=== PATIENT | female | born 1975 | race Caucasian/White ===

== ENCOUNTER 2022-09-29 08:34 | Inpatient (IN) | payer MEDICAID, SELFPAY ==
[2022-09-29] VITALS (12 sets, daily range): BP systolic 113–166; BP diastolic 64–93; PULSE 79–101; RESP 18–24; TEMP 35.9–36.8; O2SAT 94–99; BMI 37.5; BMI 36.4
--- NOTE | 2022-09-29 08:43 | ED.SOB ---
HPI - SOB/Dyspnea General Time Seen by Provider: 08:43 Date Seen: 09/29/22 Chief Complaint: Shortness of Breath/Dyspnea Stated Complaint: difficulty breathing Time Seen by Provider: 09/29/22 08:43 Source: patient and RN notes reviewed Mode of arrival: ambulatory Limitations: no limitations History of Present Illness HPI Narrative: Jonny is a 47-year-old female coming in with complaint of shortness of breath. She started with a dry cough and some body aches yesterday. She really only maybe has a little sore throat from coughing. Has not noted any temperatures. No GI symptoms with this. She has had no known ill contacts, no recent travel. Starting around 3:00 a.m. this morning she was feeling more short of breath. She feels like she just cannot catch her breath, does seem to be worse with activity. She is on Coumadin for anticoagulation for antiphospholipid syndrome. 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 She has not had her INR checked for about 6 months. Patient is a smoker and denies any prior cardiac or pulmonary diagnoses. She specifically does not believe she carries a diagnosis of emphysema or COPD. She is having no chest pain with this. MD elicited complaint: shortness of breath and cough Related Data Home oxygen amount: none Home Medications Medication Instructions Recorded Confirmed gabapentin 400 mg capsule 400 mg PO 3XD 09/29/22 09/29/22 metoprolol tartrate 25 mg tablet 25 mg PO BID blood pressure 09/29/22 09/29/22 warfarin 5 mg tablet 5 - 7.5 mg DAILY 09/29/22 Allergies Allergy/AdvReac Type Severity Reaction Status Date / Time No Known Allergies Allergy Unknown Unknown Verified 09/29/22 08:41 Review of Systems Status of ROS: Reports: 6 or more systems reviewed and unremarkable except as noted in History and below [facility] Social History Smoking Status: Current every day smoker What tobacco products do you use: cigarettes How often do you have a drink containing alcohol: 2-3 times a week AUDIT-C Alcohol total score: 3 Non-prescribed substance use: denies use service: No Exam Const: Vital Signs, click to edit/add: Vital Signs - 24 hr 09/29/22 08:39 08/22/23 09:33 09/29/22 10:48 Temperature 96.7 F L Pulse Rate [Pulse Oximeter] 93 91 Respiratory Rate 24 20 Blood Pressure [Ri t Upper Arm] 156/92 H 159/93 H Pulse Oximetry 97 96 96 Oxygen Delivery Me thod Room Air Room Air 09/29/22 13:31 09/29/22 13:37 Temperature Pulse Rate [Pulse Oximeter] 95 Respiratory Rate 20 Blood Pressure [Ri t Upper Arm] 113/76 123/64 Pulse Oximetry 94 96 Oxygen Delivery Me thod Room Air Room Air Observe patient coming from the bathroom back to her room and exam room 1. She was tachypneic, did seem short of breath but pulse oximetry placed on her right away after getting back in the room ranged from 96-99%. Her tachypnea did resolve rather quickly after sitting on the bed and resting. Documenting provider has reviewed patient's vital signs: yes Common normals: no apparent distress, oriented x3, no limitations, healthy appearing and alert General appearance: cooperative, comfortable, well kempt, well developed and anxious (Mildly so) HENMT: Common normals: normocephalic, head/scalp atraumatic, hearing grossly normal bilaterally, external ears normal, nasal mucous membranes and turbinates normal, moist oral mucous membranes, oropharynx normal and dentition normal (Has upper denture.) Head and scalp: normocephalic and atraumatic Nose: nasal mucous membranes and turbinates normal External ear: external ears normal Other: Right tympanic membrane obscured by cerumen impaction, anterior canal wall appears normal. Left TM and canal are normal. Eye: Common normals: PERRL, EOMs intact bilaterally, conjunctivae normal and no scleral icterus Conjunctiva: conjunctiva(e) normal Pupil: PERRL Neck & C-Spine: Common normals: full ROM, no lymphadenopathy, supple, no meningeal signs, no JVD and thyroid normal Thyroid: thyroid normal Chest: Common normals: inspection of chest normal and palpation of chest normal Resp: Common normals: normal respiratory effort, no retractions, no use of accessory muscles and clear to auscultation bilaterally Effort & inspection: able to speak in complete sentences Auscultation: clear to auscultation bilaterally Cardio: Common normals: no JVD, regular rate, regular rhythm, S1 normal heart sound, S2 normal heart sound, no gallops, no clicks and no murmurs Rate: regular rate Rhythm: regular rhythm Heart sounds: S1 normal and S2 normal GI: Common normals: Normal to inspection, nondistended, normoactive bowel sounds present, soft to palpation and non-tender Palpation: soft Extremity: Other: No pretibial edema. Has well-healed surgical scar overlying the left anterior lower extremity. Neuro: Common normals: oriented x3 Sensorium/orientation: alert Meningeal signs: no meningeal signs Psych: Appearance: well kempt Course Course Hospital Course: Have reassured patient that she is oxygenating her pulse oximetry. Will look at cardiopulmonary diagnoses, pulmonary infectious etiologies. This could be cardiac in nature, pulmonary infectious etiologies such as COVID or other viral issues, possibly early pneumonia which could be bacterial. She could have some component of COPD given her history of smoking but do not note any hypoxia or wheezing clinically on examination. Will do appropriate complement of blood work, start with a portable chest x-ray. Have reviewed with patient if her INR is subtherapeutic, we may need to consider doing chest CT PE protocol. We will continue to observe her on pulse oximetry while here. She obviously will also be getting EKG and troponin. Reevaluation(s) Time of Reevaluation #1: 11:15 Reevaluation #1: Have reviewed the chest x-ray findings in the lab reports with the patient. It would appear that this may be congestive heart failure. Would recommend hospitalization, getting an echo. Have reviewed with her that we will be doing a follow-up heart enzyme but it is not due until 12:25 p.m.. Will be talking to the hospitalist, reviewed with her that I have ordered 40 mg IV Lasix and reviewed the action of the diuretic. She is still not hypoxic. Did review with her that the hospitalists may want a chest CT to better delineate the lungs, will be talking to them about this. Just wanted to review this with her in case they do decide this. Time of Reevaluation #2: 11:40 Reevaluation #2: CBCs just now coming back, hemoglobin is low at 7.3. Hospitalist is down here seeing patient. This obviously needs further evaluation. Patient has already received Lasix. The shortness of breath could actually be from anemia. However, proBNP and vascularity pattern on chest x-ray suggests fluid. Patient has obviously more need for further evaluation and management. May need transfusion, will defer to the hospitalist. Consultations Consultation #1: Reviewed with Dr. Tapia, she will accept patient, does want to proceed with chest CT to ensure correct diagnosis. Next troponin due at 12:25pm. Will place order for ECHO so that this may be done today. Time: 11:18 Consultation #2: Spoke with Dr. Taveras, hospitalist had requested that abdomen and pelvis be added on to the chest CT. I was unaware that we were needing to wait for the reading by the radiologist to come back. It is in now, have let Dr. Taveras no in he actually has already seen this. He does accept patient. Have reviewed with him as well that the iron indices have not been place, was anticipating that the hospitalist would take over further workup. He states he will follow up on that. Time: 14:43 Vital Signs Vital signs: Initial Vital Signs Temperature 96.7 F L 09/29/22 08:39 Temperature Source Temporal Artery Scan 09/29/22 08:39 Pulse Rate 93 09/29/22 08:39 Respiratory Rate 24 09/29/22 08:39 Blood Pressure 156/92 H 09/29/22 08:39 Blood Pressure Mean 113 H 09/29/22 08:39 Blood Pressure Position Sitting 09/29/22 08:39 Pulse Oximetry 97 09/29/22 08:39 Oxygen Delivery Method Room Air 09/29/22 08:39 Vital Signs Temperature 96.7 F L 09/29/22 08:39 Pulse Rate 93 09/29/22 08:39 Respiratory Rate 24 09/29/22 08:39 Blood Pressure 156/92 H 09/29/22 08:39 Pulse Oximetry 97 09/29/22 08:39 Oxygen Delivery Method Room Air 09/29/22 08:39 Temperature 96.7 F L 09/29/22 08:39 Pulse Rate 95 09/29/22 13:31 Respiratory Rate 20 09/29/22 13:31 Blood Pressure 123/64 09/29/22 13:37 Pulse Oximetry 96 09/29/22 13:37 Oxygen Delivery Method Room Air 09/29/22 13:37 MDM - SOB/Dyspnea Differential Diagnosis Differential diagnosis: Likely acute exacerbation of chronic obstructive airways disease, congestive heart failure, community acquired pneumonia and pulmonary embolism Lab Data Attestation: I reviewed the patient's lab results. Labs: Lab Results 09/29/22 09/29/22 09/29/22 Range/Units 09:19 09:25 09:27 WBC 8.43 (4.50-11.00) K/uL RBC 4.34 (4.00-5.20) m/uL Hgb 7.3 L* (12.0-16.0) gm/dL Hct 28.2 L (33.0-51.0) % MCV 65 L (80-100) fL MCH 17 L (26-34) pg MCHC 26 L (32-36) gm/dL RDW Coeff of Vanessa 20.7 H (11.5-15.5) % Plt Count 338 (140-440) K/uL Neut % (Auto) 79.5 H (42.0-72.0) % Lymph % (Auto) 10.6 L (20-44) % Stewart % (Auto) 7.1 (0.0-11.0) % Eos % (Auto) 2.1 (0.0-7.0) % Baso % (Auto) 0.5 (0.0-3.0) % Neut # (Auto) 6.70 (1.7-7.0) K/uL Lymph # (Auto) 0.90 (0.90-2.90) K/uL Stewart # (Auto) 0.60 (0.00-0.90) K/UL Eos # (Auto) 0.18 (0.00-0.50) K/uL Baso # (Auto) 0.04 (0.00-0.30) K/uL Abs Immat Gran (auto) 0.02 (0.00-0.30) K/uL Imm/Tot Granulo (auto) 0.2 % INR 4.97 H (0.91-1.10) D-Dimer Quant (PE/DVT) < 0.27 (0.00-0.50) ug/ml VBG pH 7.424 (7.32-7.43) VBG pCO2 36 L (40-50) mmHG VBG pO2 45.9 (25-47) mmHG VBG HCO3 24 (21-28) mmol/L Sodium 137 (135-149) mmol/L Potassium 3.4 L (3.6-5.1) mmol/L Chloride 107 (96-114) mmol/L Carbon Dioxide 23 (20-32) mmol/L Anion Gap 7 (7-15) mEq/L BUN 7 (5-24) mg/dL Creatinine 0.5 (0.5-1.5) mg/dL Estimated Creat Clear 108.83 Estimated GFR 116 ml/min Glucose 98 (60-115) mg/dL Total Bilirubin 0.7 (0.1-1.5) mg/dL AST 31 (12-35) U/L ALT 23 (4-35) U/L Alkaline Phosphatase 101 (40-150) U/L C-Reactive Protein 3.0 H (0.5-1.0) mg/dL NT-Pro-B Natriuret Pep 1970 pg/mL Total Protein 7.0 (6.0-8.3) g/dL Albumin 3.7 (3.3-5.0) g/dL SARS-CoV-2 (PCR) Negative SARS-CoV-2 (Negative) Influenza Type A (PCR) Negative PCR FLU A (Negative) Influenza Type B (PCR) Negative PCR FLU B (Negative) RSV (PCR) Negative PCR RSV (Negative) POC Troponin I 0.02 (0.01-0.04) ng/ml Blood Type Antibody Screen Crossmatch (AHG) 09/29/22 09/29/22 Range/Units 12:25 12:47 WBC (4.50-11.00) K/uL RBC (4.00-5.20) m/uL Hgb (12.0-16.0) gm/dL Hct (33.0-51.0) % MCV (80-100) fL MCH (26-34) pg MCHC (32-36) gm/dL RDW Coeff of Vanessa (11.5-15.5) % Plt Count (140-440) K/uL Neut % (Auto) (42.0-72.0) % Lymph % (Auto) (20-44) % Stewart % (Auto) (0.0-11.0) % Eos % (Auto) (0.0-7.0) % Baso % (Auto) (0.0-3.0) % Neut # (Auto) (1.7-7.0) K/uL Lymph # (Auto) (0.90-2.90) K/uL Stewart # (Auto) (0.00-0.90) K/UL Eos # (Auto) (0.00-0.50) K/uL Baso # (Auto) (0.00-0.30) K/uL Abs Immat Gran (auto) (0.00-0.30) K/uL Imm/Tot Granulo (auto) % INR (0.91-1.10) D-Dimer Quant (PE/DVT) (0.00-0.50) ug/ml VBG pH (7.32-7.43) VBG pCO2 (40-50) mmHG VBG pO2 (25-47) mmHG VBG HCO3 (21-28) mmol/L Sodium (135-149) mmol/L Potassium (3.6-5.1) mmol/L Chloride (96-114) mmol/L Carbon Dioxide (20-32) mmol/L Anion Gap (7-15) mEq/L BUN (5-24) mg/dL Creatinine (0.5-1.5) mg/dL Estimated Creat Clear Estimated GFR ml/min Glucose (60-115) mg/dL Total Bilirubin (0.1-1.5) mg/dL AST (12-35) U/L ALT (4-35) U/L Alkaline Phosphatase (40-150) U/L C-Reactive Protein (0.5-1.0) mg/dL NT-Pro-B Natriuret Pep pg/mL Total Protein (6.0-8.3) g/dL Albumin (3.3-5.0) g/dL SARS-CoV-2 (PCR) (Negative) Influenza Type A (PCR) (Negative) Influenza Type B (PCR) (Negative) RSV (PCR) (Negative) POC Troponin I 0.00 L (0.01-0.04) ng/ml Blood Type O Positive Antibody Screen POSITIVE Crossmatch (AHG) See Detail Imaging Data Chest x-ray: Attestation: I have reviewed the pertinent imaging results. Radiologist's impression: Patient: JONNY ESCOBEDO Facility:?[facility] Patient ID:?[id number] Site Patient ID:?[id number]. Site :?[id number] Study:?XRay Chest PORTABLE-09/29/2022 9:47:20 AM Ordering Physician:?Jose C Liang Final Report: INDICATION: Dyspnea. Difficulty in breathing. COMPARISON: April 25, 2012 TECHNIQUE: Single-view study FINDINGS: TUBES AND LINES: None. HEART AND MEDIASTINUM: The heart size is normal. The mediastinal contour appears normal for patient age. LUNGS AND PLEURAL SPACES: Vascular congestion pattern without overt edema. A diffuse inflammatory process accounting for this appearance is also possible but felt less likely.The pleural spaces are unremarkable. OSSEOUS STRUCTURES: Age-appropriate appearance. No acute focal finding. IMPRESSION: Abnormal lung findings favor vascular congestion over a diffuse inflammatory process. No focal consolidation. No overt edema Dictated by Tim Saunders MD @ 09/29/2022 9:54:35 AM (Electronic Signature) CT scan - abdomen: Attestation: I have reviewed the pertinent imaging results. Radiologist's impression: Patient: JONNY ESCOBEDO Facility:?[facility] Patient ID:?[id number] Site Patient ID:?[id number]. Site :?[id number] Study:?CT Chest/Abd/Pelvis W/ 102CC [id number] 12:27:37 PM Ordering Physician:?Jose C Liang Final Report: INDICATION: Cough and shortness of breath. Abnormal chest x-ray. TECHNIQUE: CT chest, abdomen and pelvis acquired with 102 cc Isovue 370 IV contrast. COMPARISON: April 26, 2012. FINDINGS: CHEST Lungs and pleura: Small area of pneumonitis suspected in the lateral basilar segment of the right upper lobe seen best on the coronal series 5, image 82. Subtle ground-glass infiltrates also present in the left upper lobe. Mild biapical subpleural emphysema. No effusions, thickening, or pneumothorax. Heart and vasculature: Heart size is normal. Thoracic aorta and pulmonary artery are normal in caliber. Lymph node/mediastinum: No mediastinal, hilar, or axillary adenopathy. Chest wall: Normal. Bones: No suspicious bone lesions. ABDOMEN AND PELVIS: Liver: Normal in caliber and attenuation. No masses. Gallbladder and bile ducts: Unremarkable. Pancreas: Unremarkable. Spleen: Normal in caliber. Few small low attenuation lesions are of doubtful significance. Adrenal glands: Unremarkable. No masses. Kidneys: Small nonobstructive stones present in the left kidney. No suspicious mass and no hydronephrosis. GI tract: Normal in caliber and appearance. No sign of mass or inflammation. Vasculature: Unremarkable. Mesenteric arteries are patent. Lymph nodes: No lymphadenopathy. Omentum/peritoneum/retroperitoneum/abdominal wall: No masses or infiltration. No free air or significant free fluid. Pelvic organs: Large 8 cm cystic mass in the left ovary contains internal septations. Remainder of the pelvic structures are unremarkable. Bones: No suspicious bone lesions. IMPRESSION: 1. Small subtle areas of pneumonitis suspected in both upper lobes of uncertain chronicity. 2. Remainder of the chest is unremarkable. No signs of CHF. 3. Complex 8 cm left ovarian cystic mass is suspicious for a neoplasm which could be benign or malignant. Gynecology consultation is indicated for management of this finding. 4. Remainder of the exam is unremarkable. Please note that all CT scans at this facility use dose modulation, iterative reconstruction, and/or weight-based dosing when appropriate to reduce radiation dose to as low as reasonably achievable. Dictated by Jerel Salazar MD @ 09/29/2022 2:22:43 PM (Electronic Signature) ECG Data Attestation: I personally reviewed and interpreted this ECG as follows: (Normal sinus rhythm, 80 beats per minute. No ischemia noted. QT corrected 469 milliseconds.) ECG interpretation date: 09/29/22 ECG interpretation time: 09:51 Prior ECG tracings: not available for review Interpretation: Follow-up EKG showing sinus rhythm, 88 beats per minute. No acute change. Discharge Plan Discharge Clinical Impression: Shortness of breath, Anemia Patient Disposition: Admitted As Observation
--- NOTE | 2022-09-29 09:01 | CRLHL7_ITS ---
For Patients: As a result of the Century Cures Act, medical imaging exams and procedure reports are released immediately into your electronic medical record. You may view this report before your referring provider. If you have questions, please contact your health care provider. INDICATION: Dyspnea. Difficulty in breathing. COMPARISON: April 25, 2012 TECHNIQUE: Single-view study FINDINGS: TUBES AND LINES: None. HEART AND MEDIASTINUM: The heart size is normal. The mediastinal contour appears normal for patient age. LUNGS AND PLEURAL SPACES: Vascular congestion pattern without overt edema. A diffuse inflammatory process accounting for this appearance is also possible but felt less likely.The pleural spaces are unremarkable. OSSEOUS STRUCTURES: Age-appropriate appearance. No acute focal finding. IMPRESSION: Abnormal lung findings favor vascular congestion over a diffuse inflammatory process. No focal consolidation. No overt edema Dictated by Tim Saunders MD @ 09/29/2022 9:54:35 AM (Electronically Signed)
[2022-09-29 09:41] LABS: HCO3 VBG 24 mmol/L (21-28); PCO2 VBG 36 mmHG (40-50); PO2 VBG 45.9 mmHG (25-47); pH VBG 7.424 (7.32-7.43)
[2022-09-29 09:43] LABS: Troponin, Point-of-Care* 0.02 ng/ml (0.01-0.04)
[2022-09-29 10:05] LABS: Albumin* 3.7 g/dL (3.3-5.0); Chloride* 107 mmol/L (96-114)
[2022-09-29 10:06] LABS: Potassium* 3.4 mmol/L (3.6-5.1); Sodium* 137 mmol/L (135-149)
[2022-09-29 10:07] LABS: D Dimer Quantitative* < 0.27 ug/ml (0.00-0.50)
[2022-09-29 10:08] LABS: Creatinine* 0.5 mg/dL (0.5-1.5); Est. Creatinine Clearance* 108.83; Estimated Glomerular Filt Rate 116 ml/min
[2022-09-29 10:09] LABS: Alanine Aminotransferase* 23 U/L (4-35); Alkaline Phosphatase* 101 U/L (40-150); Anion Gap 7 mEq/L (7-15); Aspartate Amino Transferase* 31 U/L (12-35); Bilirubin Total* 0.7 mg/dL (0.1-1.5); Blood Urea Nitrogen* 7 mg/dL (5-24); Carbon Dioxide* 23 mmol/L (20-32); Glucose* 98 mg/dL (60-115)
[2022-09-29 10:20] LABS: INR 4.97 (0.91-1.10); NT Pro B Type NatriureticPept* 1970 pg/mL; Prothrombin Time 48.3 Seconds
[2022-09-29 10:27] LABS: PCR FLU A Negative PCR FLU A (Negative); PCR FLU B Negative PCR FLU B (Negative); PCR RSV Negative PCR RSV (Negative)
[2022-09-29 10:30] LABS: SARS PCR* Negative SARS-CoV-2 (Negative)
--- NOTE | 2022-09-29 11:16 | CRLHL7_ITS ---
For Patients: As a result of the Century Cures Act, medical imaging exams and procedure reports are released immediately into your electronic medical record. You may view this report before your referring provider. If you have questions, please contact your health care provider. INDICATION: Cough and shortness of breath. Abnormal chest x-ray. TECHNIQUE: CT chest, abdomen and pelvis acquired with 102 cc Isovue 370 IV contrast. COMPARISON: April 26, 2012. FINDINGS: CHEST Lungs and pleura: Small area of pneumonitis suspected in the lateral basilar segment of the right upper lobe seen best on the coronal series 5, image 82. Subtle ground-glass infiltrates also present in the left upper lobe. Mild biapical subpleural emphysema. No effusions, thickening, or pneumothorax. Heart and vasculature: Heart size is normal. Thoracic aorta and pulmonary artery are normal in caliber. Lymph node/mediastinum: No mediastinal, hilar, or axillary adenopathy. Chest wall: Normal. Bones: No suspicious bone lesions. ABDOMEN AND PELVIS: Liver: Normal in caliber and attenuation. No masses. Gallbladder and bile ducts: Unremarkable. Pancreas: Unremarkable. Spleen: Normal in caliber. Few small low attenuation lesions are of doubtful significance. Adrenal glands: Unremarkable. No masses. Kidneys: Small nonobstructive stones present in the left kidney. No suspicious mass and no hydronephrosis. GI tract: Normal in caliber and appearance. No sign of mass or inflammation. Vasculature: Unremarkable. Mesenteric arteries are patent. Lymph nodes: No lymphadenopathy. Omentum/peritoneum/retroperitoneum/abdominal wall: No masses or infiltration. No free air or significant free fluid. Pelvic organs: Large 8 cm cystic mass in the left ovary contains internal septations. Remainder of the pelvic structures are unremarkable. Bones: No suspicious bone lesions. IMPRESSION: 1. Small subtle areas of pneumonitis suspected in both upper lobes of uncertain chronicity. 2. Remainder of the chest is unremarkable. No signs of CHF. 3. Complex 8 cm left ovarian cystic mass is suspicious for a neoplasm which could be benign or malignant. Gynecology consultation is indicated for management of this finding. 4. Remainder of the exam is unremarkable. Please note that all CT scans at this facility use dose modulation, iterative reconstruction, and/or weight-based dosing when appropriate to reduce radiation dose to as low as reasonably achievable. Dictated by Jerel Salazar MD @ 09/29/2022 2:22:43 PM (Electronically Signed)
[2022-09-29] MEDS: FUROSEMIDE 10 MG/ML inj 40 MG IVP (11:17)
[2022-09-29 11:33] LABS: Basophils Absolute Auto 0.04 K/uL (0.00-0.30); Basophils Percent Auto 0.5 % (0.0-3.0); Eosinophils Absolute Auto 0.18 K/uL (0.00-0.50); Eosinophils Percent Auto 2.1 % (0.0-7.0); Hematocrit 28.2 % (33.0-51.0); Immature Granulocytes Abs Auto 0.02 K/uL (0.00-0.30); Immature Granulocytes Pct Auto 0.2 %; Lymphocytes Percent Auto 10.6 % (20-44); Mean Corpuscular HGB Conc 26 gm/dL (32-36); Mean Corpuscular Hemoglobin 17 pg (26-34); Mean Corpuscular Volume 65 fL (80-100); Monocytes Percent Auto 7.1 % (0.0-11.0); Neutrophils Percent Auto 79.5 % (42.0-72.0); Platelet Count* 338 K/uL (140-440); RDW Coefficient of Variation % 20.7 % (11.5-15.5); Red Blood Count 4.34 m/uL (4.00-5.20); White Blood Count* 8.43 K/uL (4.50-11.00)
[2022-09-29 11:37] LABS: Hemoglobin* 7.3 gm/dL (12.0-16.0); Slide Review Reflex No
--- NOTE | 2022-09-29 11:38 | ED.NURSE ---
lab called with critical hgb 7.3
--- NOTE | 2022-09-29 13:37 | ED.NURSE ---
Pt ambulating to the bathroom. Says she flt a little dizzy upon walking back.
[2022-09-29 14:55] LABS: Iron* 26 ug/dL (37-170)
[2022-09-29 15:04] LABS: Percent Iron Saturation 5 % (20-50); Total Iron Binding Capacity 546 ug/dL (265-497)
[2022-09-29 15:15] LABS: Lab Add On Test New Spec Needed
[2022-09-29 15:33] LABS: Immature Reticulocyte Fraction 27.1 % (3.0-15.9); Reticulocyte Hemoglobin Equivi 13.7 pg (29.0-35.0); Reticulocyte Percent 1.9 % (0.5-2.0); Reticulocytes Absolute 0.09 # (0.03-0.08)
[2022-09-29 16:00] LABS: Ferritin* 6.5 ng/mL (6.24-137.0)
--- NOTE | 2022-09-29 16:00 | CRLHL7_ITS ---
For Patients: As a result of the Century Cures Act, medical imaging exams and procedure reports are released immediately into your electronic medical record. You may view this report before your referring provider. If you have questions, please contact your health care provider. INDICATION: 8 cm left ovarian lesion. TECHNIQUE: Transabdominal and transvaginal pelvic ultrasound. FINDINGS: Uterus is anteverted and measures 10.1 x 6.5 x 6.7 cm. Endometrium is ill-defined and measures approximately 13 mm. There are 2 fibroids in the uterus, larger measuring 3.5 cm. Right ovary appears normal and has normal color and spectral Doppler flow. Left ovary appears to be a almost completely replaced by a 9 cm hypoechoic lesion with subtle internal echogenicity. There is doppler flow in the periphery of the ovary and possibly within the lesion itself. IMPRESSION: 1. Indeterminate 9 cm left ovarian mass. It is unclear if this is cystic or solid from the images. Consider MRI and/or [employer] consult. 2. Uterine fibroids. Dictated by Marino Barbosa MD @ 09/29/2022 9:15:50 PM (Electronically Signed)
[2022-09-29] MEDS: ACETAMINOPHEN 325 MG TABLET PO ×2 (16:38→22:13)
[2022-09-29] MEDS: PANTOPRAZOLE SODIUM 40 MG INJ IVP (16:38)
[2022-09-29] MEDS: NICOTINE 21 MG PATCH 1 PATCH TRANSDERMA (16:43)
--- NOTE | 2022-09-29 17:09 | PM.EN ---
Chart Event Note Date Seen: 09/29/22 Chart Event Note: 39-year-old female admitted with dyspnea. Found to be anemic with microcytic anemia and hemoglobin of 7.3. Is on warfarin and INR is 5. Anti phospholipids syndrome with previous history of clots. No history of GI bleeding. CT scan shows 8 cm left ovarian cystic mass. Pelvic ultrasound results are pending. Gynecology consult is pending for both menorrhagia and management plan for ovarian mass. Patient is admitted the hospital. Blood transfusion is ordered. She has antibodies so this will be delayed. Monitor hemoglobin. Initiate iron therapy orally. Plan EGD tomorrow. I have ordered oral vitamin K to reverse her anticoagulation. Would be good to know that she does not have significant upper GI bleeding before starting back on warfarin.
[2022-09-29] MEDS: POTASSIUM BICARB 25 MEQ EFFERVESCENT TAB 50 MEQ PO (17:42)
--- NOTE | 2022-09-29 18:52 | PC.NURSE ---
End of shift note: patient up to floor at 1455. Patient is pleasant and cooperative, alert and oriented x4. C/O SOB, hgb 7.3 and awaiting 2 units of blood. INR is 4.97 and patient received a one time dose of Vitamin K. VSS. C/O headache and the source of her current pain. PRN tylenol administered and ice pack given. Patient reports relief. Patient smokes 1 pack per day therefore nicotine patch applied to left upper shoulder. Patient on reg diet and tolerating well. Patient will be NPO at midnight for Endoscopy 09/30/2022. IV to right hand and left AC SL and patent. Ambulates independently in room to bathroom and chair. Missing 5 toes on right foot but ambulates without any problems. At patient's request, please do not discuss the 8cm cyst found on right ovary. All other aspects of her stay and health may be discussed with family. RN updated daughterCaterina over the phone on patient's condition at the request of the patient and omitted the part about the 8cm cyst.
--- NOTE | 2022-09-29 19:01 | P.GYNCN_ITS ---
WOODEN TANK ERECTOR - CN: HPI Data of Consult Time Seen by Provider: 18:00 Date Seen: 09/29/22 Patient: Other Consult date: 09/29/22 Requesting Physician: Joaquin Taveras MD Primary Care Provider: Not a Local Provider Consult Narrative Reason for consult: pelvic mass Narrative: Georgie Aiken is a 47 year old who presented to the ED today complaining of shortness of breath. During her workup, she was found to be dignificantly anemic, with a Hgb of 7.3. No obvious signs of bleeding, but is on chronic anticoagulation with warfarin due to antiphospholipid syndrome and history of thrombosis. Her INR was 5 on admission. No obvious signs of bleeding. Notes long standing history of heavy menstrual bleeding. Had CT scan of chest, abdomen and pelvis today which showed an enlarged left ovary containing an 8 cm complex cyst. GYNECOLOGIC HISTORY: LMP began on 08/22/2022. States that menstrual bleeding has always been heavy, but the bleeding seemed to increase when she was started on warfarin, with passage of clots. Over the last 6 months the menstrual interval has become somewhat more irregular. Her current cycle is late. Cis gender female. She is not sexually active and hasn't been sexually active for some time. Overdue for pap smear screening. No history of abnormal pap smears STIs or PID. OBSTETRIC HISTORY: History of 3 term vaginal deliveries, uncomplicated. History of one first trimester spontaneous miscarriage. cc:: CC: Reema Tapia MD Review of Systems Narrative: Denies pelvic pain, unusual vaginal discharge. [facility] PFS Surgical History (Updated 09/29/22 @ 19:19 by Latrice De La Rosa MD) History of bowel resection ?Z90.49 - Acquired absence of other specified parts of digestive tract (ICD- 10) History of tubal ligation ?Z98.51 - Tubal ligation status (ICD-10) History of appendectomy ?Z90.49 - Acquired absence of other specified parts of digestive tract (ICD- 10) Social History (Updated 09/29/22 @ 19:20 by Latrice De La Rosa MD) Narrative: 3 daughters What is your current living situation?: I presently have a place to live Problems where you live: no known problems Problems where you live details: no In the past 12 months, utilities in danger of being shut off: no In the past 12 mos, have been you worried that your food would run out before you had money to buy more?: never true In the past 12 mos, the food you bought just didn't last and you didn't have money to buy more?: never true Highest level of school completed/degree received: 12th grade, no diploma Smoking Status: Current every day smoker What tobacco products do you use: cigarettes Smoking packs per day: 1 Smoking cigarettes per day: 20.0 Do you use any of these nicotine containing products: None Second hand tobacco smoke exposure: No How often do you have a drink containing alcohol: monthly or less How often do you have six or more drinks on one occasion: Never AUDIT-C Alcohol total score: 1 Non-prescribed substance use: denies use Caffeine: Yes How often does anyone, including family, friends and others, physically hurt you : never How often does anyone, including family, friends and others, insult or talk down to you: never How often does anyone, including family, friends and others, threaten you with harm: never How often does anyone, including family, friends and others, scream or curse at you: never Do you think of yourself as: straight/heterosexual Gender Identity: female Are you currently sexually active: No service: No Meds Home Medications and Allergies Home Medications Medication Instructions Recorded Confirmed Type gabapentin 400 mg capsule 400 mg PO 3XD 09/29/22 09/29/22 History metoprolol tartrate 25 mg tablet 25 mg PO BID blood pressure 09/29/22 09/29/22 History trazodone 50 mg tablet 50 - 100 mg PO QPM 09/29/22 09/29/22 History warfarin 5 mg tablet 5 - 7.5 mg PO DAILY 09/29/22 09/29/22 History Allergies Allergy/AdvReac Type Severity Reaction Status Date / Time No Known Allergies Allergy Unknown Unknown Verified 09/29/22 08:41 WOODEN TANK ERECTOR - Exam Physical Exam: Vital signs: Temp Pulse Resp BP Pulse Ox O2 Del Method 96.7 F L 93 20 149/84 H 99 Room Air 09/29/22 16:10 09/29/22 16:10 09/29/22 16:10 09/29/22 16:10 09/29/22 16:10 09/29/22 16:10 Constitutional: Constitutional: no acute distress, obese and cooperative Routine Abdominal Exam: Abdominal: Present soft Comments: nontender WOODEN TANK ERECTOR - Results Labs Labs: Short CBC 09/29/22 Range/Units 09:27 WBC 8.43 (4.50-11.00) K/uL Hgb 7.3 L* (12.0-16.0) gm/dL Hct 28.2 L (33.0-51.0) % Plt Count 338 (140-440) K/uL BMP 09/29/22 09:27 Sodium 137 Potassium 3.4 L Chloride 107 Carbon Dioxide 23 BUN 7 Creatinine 0.5 Glucose 98 Liver Function 09/29/22 Range/Units 09:27 Total Bilirubin 0.7 (0.1-1.5) mg/dL AST 31 (12-35) U/L ALT 23 (4-35) U/L Alkaline Phosphatase 101 (40-150) U/L Albumin 3.7 (3.3-5.0) g/dL Imaging US - pelvis: Attestation: I have reviewed the pertinent imaging results. My impression: 8.7 x 5.8 x 7.2 complex left ovarian cyst, likely hemorrhagic cyst, with normal blood flow. 1.3 cm ill-defined endometrial stripe. Radiologist's impression: Pending. Assessment and Plan Assessment and plan (1) Menorrhagia: Status: Acute (2) Left ovarian cyst: Status: Acute Plan 1. Patient is not currently experiencing vaginal bleeding, therefore I suspect that the anemia is a chronic issue, not an acute one. I understand that ongoing evaluation for GI sources of bleeding are pending, and that transfusion is ordered to correct the anemia. Elevated INR will be corrected as well. If no other sources of blood loss are found, I would recommend that she follow up with a [facility] provider for evaluation in 1-2 weeks. 2. The left ovarian cyst has a benign appearance on ultrasound. It likely is a hemorrhagic cyst. As a precaution, we could check tumor markers, though the patient was advised that there are no specific tests that can completely rule out malignancy. I would recommend checking CA-125, CEA, and C19-9 with the am labs. 3. Given the size of the cyst, it is at risk for torsion, and it is unlikely to resolve on its own. Surgical removal should be considered, possibly by laparoscopy, both for treatment and definitive diagnosis. The patient has surgical risks that must be considered, including chronic anticoagulation, obesity, and history of other abdominal surgeries. These risk might make her a better candidate for surgery at a tertiary medical center. Certainly, there is no urgency at the moment, as there is no evidence of ovarian torsion and she is not experiencing severe pelvic pain or discomfort. This can be addressed as an outpatient following discharge. 4. The patient was informed that she is ovardue for cervical cancer screening. A pap smear and HPV test can be done at the time of her [facility] evaluation.
[2022-09-29] MEDS: SODIUM CHLORIDE 0.9 % (FLUSH) 10 ML SYRINGE 5 ML IVF (20:26)
[2022-09-29] MEDS: METOPROLOL TARTRATE 25 MG TABLET PO (20:26)
[2022-09-29] MEDS: GABAPENTIN 100 MG CAPSULE 400 MG PO (20:26)
[2022-09-29] MEDS: LACTATED RINGERS 1000 ML 1,000 ML 75 ML IV (22:14)
[2022-09-29] MEDS: MELATONIN 3 MG TABLET PO (22:34)
[2022-09-30] VITALS (21 sets, daily range): BP systolic 121–172; BP diastolic 69–99; PULSE 70–88; RESP 14–18; TEMP 36.1–37.3; O2SAT 92–98
[2022-09-30] MEDS: guaiFENesin 100 MG/ML CUP PO ×5 (00:27→20:39)
[2022-09-30] MEDS: ACETAMINOPHEN 325 MG TABLET PO (05:19)
[2022-09-30 06:17] LABS: Basophils Absolute Auto 0.04 K/uL (0.00-0.30); Basophils Percent Auto 0.5 % (0.0-3.0); Eosinophils Absolute Auto 0.28 K/uL (0.00-0.50); Eosinophils Percent Auto 3.5 % (0.0-7.0); Hematocrit 32.3 % (33.0-51.0); Hemoglobin* 9.1 gm/dL (12.0-16.0); Immature Granulocytes Abs Auto 0.02 K/uL (0.00-0.30); Immature Granulocytes Pct Auto 0.3 %; Lymphocytes Percent Auto 14.3 % (20-44); Mean Corpuscular HGB Conc 28 gm/dL (32-36); Mean Corpuscular Hemoglobin 19 pg (26-34); Mean Corpuscular Volume 66 fL (80-100); Monocytes Percent Auto 8.9 % (0.0-11.0); Neutrophils Percent Auto 72.5 % (42.0-72.0); Platelet Count* 296 K/uL (140-440); RDW Coefficient of Variation % 21.5 % (11.5-15.5); Red Blood Count 4.89 m/uL (4.00-5.20); White Blood Count* 7.96 K/uL (4.50-11.00)
[2022-09-30 06:30] LABS: Chloride* 106 mmol/L (96-114); Potassium* 3.6 mmol/L (3.6-5.1); Sodium* 136 mmol/L (135-149)
[2022-09-30 06:32] LABS: INR 1.71 (0.91-1.10)
[2022-09-30 06:33] LABS: Anion Gap 4 mEq/L (7-15); Blood Urea Nitrogen* 7 mg/dL (5-24); Carbon Dioxide* 26 mmol/L (20-32); Creatinine* 0.5 mg/dL (0.5-1.5); Est. Creatinine Clearance* 108.83; Estimated Glomerular Filt Rate 116 ml/min; Glucose* 99 mg/dL (60-115)
[2022-09-30 06:34] LABS: Calcium* 8.6 mg/dL (8.4-10.6)
[2022-09-30 06:36] LABS: Slide Review Reflex Yes
[2022-09-30 06:56] LABS: Slide Review Acceptable Review (Acceptable)
--- NOTE | 2022-09-30 07:33 | P.IMPN_ITS ---
Progress Note: A&P Assessment and plan (1) Anemia: Problem details: likely chronic menorrhagia, iron deficiency noted and fibroids noted. UGI reassuring for no acute bleeding. 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 will assure stability of hgb before restarting. Status: Acute (4) Menorrhagia: Problem details: no active bleeding now. INR corrected 09/29 with Vit K. outpatient workup appropriate. Status: Acute (5) Antiphospholipid syndrome: Problem details: on chronic anticoagulation Status: Acute (6) Left ovarian cyst: Problem details: appreciate TEST ENGINE EVALUATOR consult. oncologic markers pending. outpatient workup for EMB, possible surgical planning. 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 no abx at this time. no evidence of CHF. 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 Patient completed blood transfusion. EGD reassuring today. Started oral iron. Still coughing despite increase in hemoglobin. Will start antibiotics. View chest CT that showed pneumonitis. Echo from 09/29/22 Normal global systolic function of the left ventricle. EF 64%. Only mild increased wall thickness. Global systolic right ventricle function is normal Objective: Cooperative. Insightful. Coughing. Vitals: see above Lungs: Clear. No wheezing Cardiac: S1S2. No edema. Disposition/Potential discharge - Likely to return to previous living situation. Today I spent 50minutes seeing the patient, reviewing Expanse and EPIC notes/diagnostics, discussing the care plan with our care time that includes social work, PT/OT, pharmacy, RT, care home and documenting my impressions and plan in the medical record. Smoking/Tobacco [id number] >10 mins. I went over the clinical stigmata of chronic tobacco use on the body. I explained the effect on the vasculature, lungs, heart, skin. I recommended complete abstinence from tobacco products and instructed on programs available at discharge from acute care. Exam Const: Vital Signs, click to edit/add: Vital Signs - 24 hr 09/29/22 08:39 09/29/22 09:33 09/29/22 10:48 Temperature 96.7 F L Pulse Rate Pulse Rate [Pulse Oximeter] 93 91 Respiratory Rate 24 20 Blood Pressure Blood Pressure [Ri ght Arm] Blood Pressure [Ri ght Upper Arm] 156/92 H 159/93 H Pulse Oximetry 97 96 96 Oxygen Delivery Me thod Room Air Room Air 09/29/22 12:30 09/29/22 12:30 09/29/22 13:31 Temperature 98.3 F Pulse Rate Pulse Rate [Pulse Oximeter] 83 83 95 Respiratory Rate 18 20 Blood Pressure Blood Pressure [Ri ght Arm] 135/70 Blood Pressure [Ri ght Upper Arm] 113/76 Pulse Oximetry 96 94 Oxygen Delivery Me thod Room Air Room Air 09/29/22 13:37 09/29/22 14:58 09/29/22 14:58 Temperature 96.7 F L Pulse Rate Pulse Rate [Pulse Oximeter] 93 Respiratory Rate 20 Blood Pressure Blood Pressure [Ri ght Arm] 149/84 H Blood Pressure [Ri ght Upper Arm] 123/64 Pulse Oximetry 96 99 99 Oxygen Delivery Me thod Room Air Room Air Room Air 09/29/22 16:10 09/29/22 16:10 09/29/22 19:00 Temperature 96.7 F L 97.1 F L Pulse Rate Pulse Rate [Pulse Oximeter] 93 101 H Respiratory Rate 20 18 Blood Pressure Blood Pressure [Ri ght Arm] 149/84 H 166/92 H Blood Pressure [Ri ght Upper Arm] Pulse Oximetry 99 99 95 Oxygen Delivery Me thod Room Air Room Air Room Air 09/29/22 23:24 09/29/22 23:41 09/30/22 00:26 Temperature 98.3 F 98.2 F 98.5 F Pulse Rate 82 81 83 Pulse Rate [Pulse Oximeter] Respiratory Rate 18 18 18 Blood Pressure 135/70 134/80 143/84 H Blood Pressure [Ri ght Arm] Blood Pressure [Ri ght Upper Arm] Pulse Oximetry 96 Oxygen Delivery Me thod 09/30/22 01:26 09/30/22 02:00 09/30/22 02:30 Temperature 98.6 F 98.6 F 98.3 F Pulse Rate 81 82 78 Pulse Rate [Pulse Oximeter] Respiratory Rate 18 16 18 Blood Pressure 141/75 H 143/85 H 130/85 Blood Pressure [Ri ght Arm] Blood Pressure [Ri ght Upper Arm] Pulse Oximetry 96 94 95 Oxygen Delivery Me thod 09/30/22 02:30 09/30/22 02:35 09/30/22 02:51 Temperature 97.9 F 98.8 F 97.9 F Pulse Rate 79 80 Pulse Rate [Pulse Oximeter] 80 Respiratory Rate 16 16 16 Blood Pressure 131/75 135/69 Blood Pressure [Ri ght Arm] 135/69 Blood Pressure [Ri ght Upper Arm] Pulse Oximetry 95 95 Oxygen Delivery Me thod Room Air 09/30/22 03:36 09/30/22 04:54 09/30/22 05:10 Temperature 98.5 F 98.4 F 98.3 F Pulse Rate 83 87 82 Pulse Rate [Pulse Oximeter] Respiratory Rate 14 18 16 Blood Pressure 151/79 H 151/79 H 141/75 H Blood Pressure [Ri ght Arm] Blood Pressure [Ri ght Upper Arm] Pulse Oximetry 93 94 94 Oxygen Delivery Me thod Labs Labs: Laboratory Results - last 24 hr 09/29/22 09/29/22 09/29/22 09:19 09:25 09:27 WBC 8.43 RBC 4.34 Hgb 7.3 L* Hct 28.2 L MCV 65 L MCH 17 L MCHC 26 L RDW Coeff of Vanessa 20.7 H Plt Count 338 Neut % (Auto) 79.5 H Lymph % (Auto) 10.6 L Towns % (Auto) 7.1 Eos % (Auto) 2.1 Baso % (Auto) 0.5 Neut # (Auto) 6.70 Lymph # (Auto) 0.90 Towns # (Auto) 0.60 Eos # (Auto) 0.18 Baso # (Auto) 0.04 Abs Immat Gran (auto) 0.02 Imm/Tot Granulo (auto) 0.2 Diff Slide Review Absolute Retic Percent Retic Immature Retic Fraction Retic Hgb Equivalent INR 4.97 H D-Dimer Quant (PE/DVT) < 0.27 VBG pH 7.424 VBG pCO2 36 L VBG pO2 45.9 VBG HCO3 24 Sodium 137 Potassium 3.4 L Chloride 107 Carbon Dioxide 23 Anion Gap 7 BUN 7 Creatinine 0.5 Estimated Creat Clear 108.83 Estimated GFR 116 Glucose 98 Calcium Iron TIBC % Saturation Ferritin Total Bilirubin 0.7 AST 31 ALT 23 Alkaline Phosphatase 101 C-Reactive Protein 3.0 H NT-Pro-B Natriuret Pep 1970 Total Protein 7.0 Albumin 3.7 SARS-CoV-2 (PCR) Negative SARS-CoV-2 Influenza Type A (PCR) Negative PCR FLU A Influenza Type B (PCR) Negative PCR FLU B RSV (PCR) Negative PCR RSV Lab Acknowledgement POC Troponin I 0.02 Blood Type Antibody Screen Antibody Identification Crossmatch ([facility]) 09/29/22 09/29/22 09/29/22 12:25 12:47 14:44 WBC RBC Hgb Hct MCV MCH MCHC RDW Coeff of Vanessa Plt Count Neut % (Auto) Lymph % (Auto) Towns % (Auto) Eos % (Auto) Baso % (Auto) Neut # (Auto) Lymph # (Auto) Towns # (Auto) Eos # (Auto) Baso # (Auto) Abs Immat Gran (auto) Imm/Tot Granulo (auto) Diff Slide Review Absolute Retic Percent Retic Immature Retic Fraction Retic Hgb Equivalent INR D-Dimer Quant (PE/DVT) VBG pH VBG pCO2 VBG pO2 VBG HCO3 Sodium Potassium Chloride Carbon Dioxide Anion Gap BUN Creatinine Estimated Creat Clear Estimated GFR Glucose Calcium Iron TIBC % Saturation Ferritin Total Bilirubin AST ALT Alkaline Phosphatase C-Reactive Protein NT-Pro-B Natriuret Pep Total Protein Albumin SARS-CoV-2 (PCR) Influenza Type A (PCR) Influenza Type B (PCR) RSV (PCR) Lab Acknowledgement Test Added POC Troponin I 0.00 L Blood Type O Positive Antibody Screen POSITIVE Antibody Identification Anti-Fya Crossmatch ([facility]) See Detail 09/29/22 09/29/22 09/29/22 14:45 15:11 21:55 WBC RBC Hgb 8.0 L Hct MCV MCH MCHC RDW Coeff of Vanessa Plt Count Neut % (Auto) Lymph % (Auto) Towns % (Auto) Eos % (Auto) Baso % (Auto) Neut # (Auto) Lymph # (Auto) Towns # (Auto) Eos # (Auto) Baso # (Auto) Abs Immat Gran (auto) Imm/Tot Granulo (auto) Diff Slide Review Absolute Retic 0.09 H Percent Retic 1.9 Immature Retic Fraction 27.1 H Retic Hgb Equivalent 13.7 L INR D-Dimer Quant (PE/DVT) VBG pH VBG pCO2 VBG pO2 VBG HCO3 Sodium Potassium Chloride Carbon Dioxide Anion Gap BUN Creatinine Estimated Creat Clear Estimated GFR Glucose Calcium Iron 26 L TIBC 546 H % Saturation 5 L Ferritin 6.5 Total Bilirubin AST ALT Alkaline Phosphatase C-Reactive Protein NT-Pro-B Natriuret Pep Total Protein Albumin SARS-CoV-2 (PCR) Influenza Type A (PCR) Influenza Type B (PCR) RSV (PCR) Lab Acknowledgement New Spec Needed POC Troponin I Blood Type Antibody Screen Antibody Identification Crossmatch ([facility]) 09/30/22 05:58 WBC 7.96 RBC 4.89 Hgb 9.1 L Hct 32.3 L MCV 66 L MCH 19 L MCHC 28 L RDW Coeff of Vanessa 21.5 H Plt Count 296 Neut % (Auto) 72.5 H Lymph % (Auto) 14.3 L Towns % (Auto) 8.9 Eos % (Auto) 3.5 Baso % (Auto) 0.5 Neut # (Auto) 5.80 Lymph # (Auto) 1.10 Towns # (Auto) 0.70 Eos # (Auto) 0.28 Baso # (Auto) 0.04 Abs Immat Gran (auto) 0.02 Imm/Tot Granulo (auto) 0.3 Diff Slide Review Acceptable Review Absolute Retic Percent Retic Immature Retic Fraction Retic Hgb Equivalent INR 1.71 H D-Dimer Quant (PE/DVT) VBG pH VBG pCO2 VBG pO2 VBG HCO3 Sodium 136 Potassium 3.6 Chloride 106 Carbon Dioxide 26 Anion Gap 4 L BUN 7 Creatinine 0.5 Estimated Creat Clear 108.83 Estimated GFR 116 Glucose 99 Calcium 8.6 Iron TIBC % Saturation Ferritin Total Bilirubin AST ALT Alkaline Phosphatase C-Reactive Protein NT-Pro-B Natriuret Pep Total Protein Albumin SARS-CoV-2 (PCR) Influenza Type A (PCR) Influenza Type B (PCR) RSV (PCR) Lab Acknowledgement POC Troponin I Blood Type Antibody Screen Antibody Identification Crossmatch ([facility])
--- NOTE | 2022-09-30 07:36 | PC.NURSE ---
Pt alert and oriented x3. Afebrile. Pt denies pain, chest pain?and N/V. Pt reports SOB with exertion.?Pt received 2 units of blood overnight, tolerated well. Pt is up ad maria del rosario in room, voiding but did not have BM overnight, still needs blood occult culture. Pt is tolerating an NPO diet that started at 0000.? Pt reported having cough for past day and a half, no production, dry cough, PRN?guaifenesin?given, reduced cough. Pt reported headache in morning after coughing, PRN tylenol given.?Pt did not sleep well due to frequent vitals. ?
--- NOTE | 2022-09-30 07:38 | P.IMHP_ITS ---
Hospitalist- H&P: HPI History of Present Illness Date Seen: 09/30/22 Chief complaint: difficulty breathing Narrative: ADMISSION HISTORY AND PHYSICAL - HOSPITALIST Chief Complaint: Acute shortness of breath, cough, no energy HPI: 47-year-old Georgie is a female who presented to our emergency room after approximately 12 hours of acute shortness of breath. She has had a dry hacking cough as well. No fever. No history of sick contacts. She is a smoker. She stated that the shortness of breath was mild, went to bed but awoke in the middle of the night with acute shortness of breath and panic. No history of asthma or COPD. She has had an albuterol inhaler for 3 years after a week of being ill, but never needs it. Her medical history is significant for chronic anticoagulation secondary to antiphospholipid syndrome. She has had 2 hospitalizations, 2 surgeries for embolic events. These both happened in 2019. She lost her insurance earlier this year but continued to take her warfarin without surveillance. When she arrived in the ED her INR was almost 5. Further questioning, the patient states she has heavy menstrual cycles while being on warfarin. No chronic pelvic or abdominal pain. No blood per stool. No diarrhea. Cough is nonproductive. No blood-tinged sputum. No significant pain to speak of. ER COURSE: Initially was considered to be in heart failure, as her chest x-ray was read with pulmonary edema. She was given IV Lasix. However her CBC then returned with a significant new anemia of 7.4. Microcytic. She underwent a CT chest abdomen pelvis which showed a complex adnexal mass and fibroid in her uterus. Nonspecific pneumonitis as well bilaterally. Hospital medicine team was asked further evaluate her anemia, cough and shortness of breath. She was not hypoxic or hypercapnic with her dyspnea. She was on room air. CODE STATUS: FULL CODE EMERGENCY CONTACT PLAN: [facility] [id number] I've updated the PFSH, medications and allergies in the Expanse tabs. INVESTIGATIONS: LABS/MICRO/ECG/IMAGING Vitals reviewed. Blood pressure is 141/73. Temp is 97? F. Rest per 16. Unlabored. 92% on room air. Pulse 82. CBC reveals a normal white count. Hemoglobin 7.3. MCV 65. Platelet count 338. Absolute retic count is slightly elevated at 0.09. Reticulocyte hemoglobin equivalent is 13.7 INR 4.97 D-dimer undetectable Blood gas normal Electrolytes normal. Iron deficient with an iron level of 26. TIBC 546. 5% saturation. LFTs normal CRP 3.0 Negative quad screen IV portable CXR Abnormal lung findings favor vascular congestion over a diffuse inflammatory process. No focal consolidation. No overt edema CAP - contrast IMPRESSION: 1. Small subtle areas of pneumonitis suspected in both upper lobes of uncertain chronicity. 2. Remainder of the chest is unremarkable. No signs of CHF. 3. Complex 8 cm left ovarian cystic mass is suspicious for a neoplasm which could be benign or malignant. Gynecology consultation is indicated for management of this finding. 4. Remainder of the exam is unremarkable. EKG: NSR, normal ECG ECHO normal LVEF and RV function. EF >60%. mild LVH; no significant valvular issues. REVIEW OF SYSTEMS: 12-point ROS completed with patient and negative unless otherwise stated in HPI or below. PHYSICAL EXAM: CONSTITUTIONAL: Conversive, good historian. A/O. Knows setting and context. VITAL SIGNS: see record. HEENT: Normocephalic, atraumatic. PERRL, EOMI, conjunctivae pink, no scleral icterus. Ears and nose externally normal. Pharynx normal. NECK: No JVD. No carotid bruit, no thyromegaly, no adenopathy. CHEST: Clear to auscultation bilaterally HEART: S1 and S2 normal. No harsh murmurs. Edema MUSCULOSKELETAL: No gross joint deformity or swelling. NEURO: Cranial nerves intact. Grossly intact. No asymmetric findings. SKIN: No rashes, petechiae, concerning changes PSYCHIATRIC: Euthymic. ADMIT TO MEDSURG: FLOOR CARE DVT: SCD/ambulation GI: PPI Time spent: Today I spent 75 minutes seeing the patient, discussing the patient with ER staff, reviewing Expanse and EPIC notes/diagnostics, discussing the care plan with our care time that includes social work, PT/OT, pharmacy, RT, fdc and documenting my impressions and plan in the medical record. [facility] Medical History (Updated 09/30/22 @ 13:30 by Ute Jacob MD) Closed fracture of tibia and fibula (02/15/12) ?S82.209A - Unspecified fracture of shaft of unspecified tibia, initial encounter for closed fracture (ICD-10) ?S82.409A - Unspecified fracture of shaft of unspecified fibula, initial encounter for closed fracture (ICD-10) Surgical History (Updated 09/29/22 @ 19:19 by Latrice De La Rosa MD) History of bowel resection ?Z90.49 - Acquired absence of other specified parts of digestive tract (ICD- 10) History of tubal ligation ?Z98.51 - Tubal ligation status (ICD-10) History of appendectomy ?Z90.49 - Acquired absence of other specified parts of digestive tract (ICD- 10) Social History (Updated 09/29/22 @ 19:20 by Latrice De La Rosa MD) Narrative: 3 daughters What is your current living situation?: I presently have a place to live Problems where you live: no known problems Problems where you live details: no In the past 12 months, utilities in danger of being shut off: no In the past 12 mos, have been you worried that your food would run out before you had money to buy more?: never true In the past 12 mos, the food you bought just didn't last and you didn't have money to buy more?: never true Highest level of school completed/degree received: 12th grade, no diploma Smoking Status: Current every day smoker What tobacco products do you use: cigarettes Smoking packs per day: 1 Smoking cigarettes per day: 20.0 Do you use any of these nicotine containing products: None Second hand tobacco smoke exposure: No How often do you have a drink containing alcohol: monthly or less How often do you have six or more drinks on one occasion: Never AUDIT-C Alcohol total score: 1 Non-prescribed substance use: denies use Caffeine: Yes How often does anyone, including family, friends and others, physically hurt you : never How often does anyone, including family, friends and others, insult or talk down to you: never How often does anyone, including family, friends and others, threaten you with harm: never How often does anyone, including family, friends and others, scream or curse at you: never Do you think of yourself as: straight/heterosexual Gender Identity: female Are you currently sexually active: No service: No Meds Home Medications and Allergies Home Medications Medication Instructions Recorded Confirmed Type gabapentin 400 mg capsule 400 mg PO 3XD 09/29/22 09/29/22 History metoprolol tartrate 25 mg tablet 25 mg PO BID blood pressure 09/29/22 09/29/22 History trazodone 50 mg tablet 50 - 100 mg PO QPM 09/29/22 09/29/22 History warfarin 5 mg tablet 5 - 7.5 mg PO DAILY 09/29/22 09/29/22 History Allergies Allergy/AdvReac Type Severity Reaction Status Date / Time No Known Allergies Allergy Unknown Unknown Verified 09/29/22 08:41 Exam Const: Vital Signs, click to edit/add: Vital Signs - 24 hr 09/29/22 08:39 09/29/22 09:33 09/29/22 10:48 Temperature 96.7 F L Pulse Rate Pulse Rate [Pulse Oximeter] 93 91 Respiratory Rate 24 20 Blood Pressure Blood Pressure [Ri ght Arm] Blood Pressure [Ri ght Upper Arm] 156/92 H 159/93 H Pulse Oximetry 97 96 [facility] 09/29/22 12:30 09/29/22 12:30 09/29/22 13:31 Temperature 98.3 F Pulse Rate Pulse Rate [Pulse Oximeter] 83 83 95 Respiratory Rate 18 20 Blood Pressure Blood Pressure [Ri ght Arm] 135/70 Blood Pressure [Ri ght Upper Arm] 113/76 Pulse Oximetry 96 94 [facility] Room Air 09/29/22 13:37 09/29/22 14:58 09/29/22 14:58 Temperature 96.7 F L Pulse Rate Pulse Rate [Pulse Oximeter] 93 Respiratory Rate 20 Blood Pressure Blood Pressure [Ri ght Arm] 149/84 H Blood Pressure [Ri ght Upper Arm] 123/64 Pulse Oximetry 96 99 99 [facility] Room Air Room Air 09/29/22 16:10 09/29/22 16:10 09/29/22 19:00 Temperature 96.7 F L 97.1 F L Pulse Rate Pulse Rate [Pulse Oximeter] 93 101 H Respiratory Rate 20 18 Blood Pressure Blood Pressure [Ri ght Arm] 149/84 H 166/92 H Blood Pressure [Ri ght Upper Arm] Pulse Oximetry 99 99 95 [facility] Room Air Room Air 09/29/22 23:24 09/29/22 23:41 09/30/22 00:26 Temperature 98.3 F 98.2 F 98.5 F Pulse Rate 82 81 83 Pulse Rate [Pulse Oximeter] Respiratory Rate 18 18 18 Blood Pressure 135/70 134/80 143/84 H Blood Pressure [Ri ght Arm] Blood Pressure [Ri ght Upper Arm] Pulse Oximetry 96 Oxygen Delivery Me thod 09/30/22 01:26 09/30/22 02:00 09/30/22 02:30 Temperature 98.6 F 98.6 F 98.3 F Pulse Rate 81 82 78 Pulse Rate [Pulse Oximeter] Respiratory Rate 18 16 18 Blood Pressure 141/75 H 143/85 H 130/85 Blood Pressure [Ri ght Arm] Blood Pressure [Ri ght Upper Arm] Pulse Oximetry 96 94 95 Oxygen Delivery Me thod 09/30/22 02:30 09/30/22 02:35 09/30/22 02:51 Temperature 97.9 F 98.8 F 97.9 F Pulse Rate 79 80 Pulse Rate [Pulse Oximeter] 80 Respiratory Rate 16 16 16 Blood Pressure 131/75 135/69 Blood Pressure [Ri ght Arm] 135/69 Blood Pressure [Ri ght Upper Arm] Pulse Oximetry 95 95 [facility] 09/30/22 03:36 09/30/22 04:54 09/30/22 05:10 Temperature 98.5 F 98.4 F 98.3 F Pulse Rate 83 87 82 Pulse Rate [Pulse Oximeter] Respiratory Rate 14 18 16 Blood Pressure 151/79 H 151/79 H 141/75 H Blood Pressure [Ri ght Arm] Blood Pressure [Ri ght Upper Arm] Pulse Oximetry 93 94 94 Oxygen Delivery Me od Hospitalist - H&P: Result Labs Labs: Short CBC 09/29/22 09/29/22 09/30/22 Range/Units 09:27 21:55 05:58 WBC 8.43 7.96 (4.50-11.00) K/uL Hgb 7.3 L* 8.0 L 9.1 L (12.0-16.0) gm/dL Hct 28.2 L 32.3 L (33.0-51.0) % Plt Count 338 296 (140-440) K/uL BMP 09/29/22 09/30/22 09:27 05:58 Sodium 137 136 Potassium 3.4 L 3.6 Chloride 107 106 Carbon Dioxide 23 26 BUN 7 7 Creatinine 0.5 0.5 Glucose 98 99 Calcium 8.6 Liver Function 09/29/22 Range/Units 09:27 Total Bilirubin 0.7 (0.1-1.5) mg/dL AST 31 (12-35) U/L ALT 23 (4-35) U/L Alkaline Phosphatase 101 (40-150) U/L Albumin 3.7 (3.3-5.0) g/dL Assessment and Plan Assessment and plan (1) Acute dyspnea: Problem comment: likely related to anemia; CT chest revealed upper lobe pneumonitis of unclear clinical significance. no abx at this time. no evidence of CHF. 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 UGI reassuring for no acute bleeding. can restart coumadin in the am Status: Acute (3) Chronic blood loss anemia: Problem comment: will see squeak rattle and leak repairer as an outpatient will have PCP order colonoscopy Status: Deleted (4) Iron deficiency: Problem comment: starting oral replacement squeak rattle and leak repairer or PCP to consider iron IV replacement Status: Acute (5) Left ovarian cyst: Problem comment: appreciate [employer] consult. oncologic markers pending. outpatient workup for EMB, possible surgical planning. Status: Acute (6) Menorrhagia: Problem comment: no active bleeding now. INR corrected 09/29 with Vit K. outpatient workup appropriate. Status: Acute (7) Antiphospholipid syndrome: Problem comment: on chronic anticoagulation Status: Acute (8) Chronic anticoagulation: Problem comment: on warfarin for APS. will assure stability of hgb before restarting. 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
[2022-09-30] MEDS: GABAPENTIN 100 MG CAPSULE 400 MG PO ×3 (08:38→20:39)
[2022-09-30] MEDS: METOPROLOL TARTRATE 25 MG TABLET PO ×2 (08:38→20:39)
[2022-09-30] MEDS: LACTATED RINGERS 1000 ML 1,000 ML 75 ML IV (10:29)
[2022-09-30 12:00] LABS: INR 1.41 (0.91-1.10); Prothrombin Time 18.1 Seconds
--- NOTE | 2022-09-30 12:57 | W.ANESCHARGE ---
Anesthesia Charges Start Date/Time Anesthesia Start Date: 09/30/22 Anesthesia Start Time: 12:40 Stop Date/Time Anesthesia Stop Date: 09/30/22 Anesthesia Stop Time: 12:53
--- NOTE | 2022-09-30 13:50 | W.ANESCHARGE ---
Anesthesia Charges Start Date/Time Anesthesia Start Date: 09/30/22 Anesthesia Start Time: 12:40 Stop Date/Time Anesthesia Stop Date: 09/30/22 Anesthesia Stop Time: 12:53
[2022-09-30] MEDS: AZITHROMYCIN 250 MG TABLET 500 MG PO (14:13)
--- NOTE | 2022-09-30 14:39 | PC.NURSE ---
End of Shift: Pt remained AO throughout shift, pleasant and cooperative. Underwent an endoscopy today, returned to unit for recovery. VS taken q10 min *1 hr. Pt denied any sx. Advanced to regular diet, tolerating well. Denies any pain. Independent in room. Fecal occult test ordered, no BM during shift. Continent with bladder.
[2022-09-30] MEDS: NICOTINE 21 MG PATCH 1 PATCH TRANSDERMA (16:41)
[2022-09-30] MEDS: FERROUS SULFATE 325 MG TABLET PO (18:23)
[2022-09-30] MEDS: MELATONIN 3 MG TABLET PO (20:39)
[2022-09-30] MEDS: SODIUM CHLORIDE 0.9 % (FLUSH) 10 ML SYRINGE 5 ML IVF (20:40)
--- NOTE | 2022-09-30 22:18 | PC.NURSE ---
End of Shift: Patient pleasant and cooperative. Afebrile. Denies pain. PRN Guaifenesin x2 for cough. Tolerating regular diet with no nausea. Up independently in room. No BM this shift.
[2022-10-01] MEDS: guaiFENesin 100 MG/ML CUP PO ×2 (01:03→09:28)
[2022-10-01] MEDS: ACETAMINOPHEN 325 MG TABLET PO (01:06)
[2022-10-01 05:05] VITALS: BP 135/104; BP 158/95; BP 159/86; PULSE 71; PULSE 75; PULSE 76; RESP 18; TEMP 37.2; O2SAT 95
--- NOTE | 2022-10-01 06:29 | PC.NURSE ---
END OF SHIFT NOTE: PT PLEASANT AND COOPERATIVE. A&Ox4. DENIES CP, SOB, N/V. AMBULATES WITHIN ROOM INDEPENDENTLY. VSS ON RA; AFEBRILE. LS WITH EXPIRATORY WHEEZES. INTERMITTENT COUGH WITH RELIEF FROM PRN GUAIFENESIN. CALL LIGHT WITHIN PT?S REACH.?
[2022-10-01 07:12] LABS: Basophils Absolute Auto 0.02 K/uL (0.00-0.30); Basophils Percent Auto 0.2 % (0.0-3.0); Eosinophils Absolute Auto 0.25 K/uL (0.00-0.50); Eosinophils Percent Auto 2.9 % (0.0-7.0); Hematocrit 32.3 % (33.0-51.0); Hemoglobin* 8.9 gm/dL (12.0-16.0); Immature Granulocytes Abs Auto 0.02 K/uL (0.00-0.30); Immature Granulocytes Pct Auto 0.2 %; Lymphocytes Absolute Auto 1.81 K/uL (0.90-2.90); Lymphocytes Percent Auto 21.1 % (20-44); Mean Corpuscular HGB Conc 28 gm/dL (32-36); Mean Corpuscular Hemoglobin 19 pg (26-34); Mean Corpuscular Volume 67 fL (80-100); Monocytes Percent Auto 6.5 % (0.0-11.0); Neutrophils Absolute Auto 5.92 K/uL (1.7-7.0); Neutrophils Percent Auto 69.1 % (42.0-72.0); Platelet Count* 290 K/uL (140-440); Red Blood Count 4.81 m/uL (4.00-5.20); White Blood Count* 8.58 K/uL (4.50-11.00)
[2022-10-01 07:18] LABS: Slide Review Reflex No
[2022-10-01 07:26] LABS: INR 1.19 (0.91-1.10); Prothrombin Time 15.8 Seconds
[2022-10-01 09:00] VITALS: BP 151/85; PULSE 101; RESP 18; TEMP 36.1; O2SAT 94
[2022-10-01] MEDS: FERROUS SULFATE 325 MG TABLET PO (09:23)
[2022-10-01] MEDS: GABAPENTIN 100 MG CAPSULE 400 MG PO (09:24)
[2022-10-01] MEDS: METOPROLOL TARTRATE 25 MG TABLET PO (09:27)
[2022-10-01] MEDS: SODIUM CHLORIDE 0.9 % (FLUSH) 10 ML SYRINGE 5 ML IVF (09:44)
[2022-10-01] MEDS: AZITHROMYCIN 250 MG TABLET PO (09:45)
--- NOTE | 2022-10-01 10:48 | PM.DS1 ---
DS: Providers Provider Date Seen: 10/01/22 Date of admission: 09/30/22 09:15 Primary care physician: Not a Local Provider Admitting Clinician: Reema Tapia MD Consults: 09/29/22 17:57 Consult to Physician [CONS] Routine Comment: Consulting Provider: aLtrice De La Rosa Has provider been notified: Yes Attending Physician on discharge: [facility] Date of Discharge: 10/01/22 DS: Diagnosis Discharge Diagnosis (1) Acute dyspnea: Status: Acute Problem details: likely related to anemia; CT chest revealed upper lobe pneumonitis of unclear clinical significance. no evidence of CHF. 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 UGI reassuring for no acute bleeding. can restart coumadin 10/01 (3) Menorrhagia: Status: Acute Problem details: no active bleeding now. INR corrected 09/29 with Vit K. outpatient workup appropriate. restarting anticoagulation. (4) Iron deficiency: Status: Acute Problem details: starting oral replacement order placed iron IV replacement (5) Chronic anticoagulation: Status: Acute Problem details: on warfarin for APS. will assure stability of hgb before restarting. recommending checking to see if DOAC is covered by insurance as she will need longstanding OAC (6) Left ovarian cyst: Status: Acute Problem details: appreciate BIOTECHNOLOGIST consult. oncologic markers pending. outpatient workup for EMB, possible surgical planning. 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 Chronic anticoagulation. I refer the patient to the [facility] for a DOAC, Xarelto 10mg daily. If this is not affordable the patient is to continue her warfarin. She is clear she should not continue both. 2. Three more days of azithromycin for in nonspecific lower respiratory tract infection. 3. IV iron therapy 4. Gynecology consult REFERRALS WHILE ADMITTED: Gynecology REFERRALS AFTER DISCHARGE: Gynecology Infusion center BRIEF HOSPITAL COURSE: Georgie is a 47-year-old presented with shortness of breath and cough. Her workup revealed a chronic blood loss anemia. Her hemoglobin was 7.4. She was transfused 2 units. She felt much better. She continued to cough. Imaging had revealed a nonspecific pneumonitis. This was treated with azithromycin. Her iron studies showed a severe iron deficiency. She was started on oral iron. I also feel that IV iron therapy may be of benefit to her. This was ordered and will be coordinated through the [facility]. Gynecology consulted and recommended outpatient workup for Pap, EMB and likely surgical planning for her left adnexal mass which is thought to be a large hemorrhagic cyst. SUBSTANTIVE NOTATIONS ON IMAGING, LAB, MICROBIOLOGY/PATHOLOGY STUDIES: Hemoglobin on discharge 8.9. MCV 60 5-67. MCH 17-19. Normal white count, normal platelets Initially her INR was 4.97. On the day of discharge it was 1.2 Iron level showed a total serum iron of 26. A TIBC of 546. The% saturation is 5. Ferritin is 6.5. Triple marker ovarian cancer screening pending at the point of discharge. CT chest abdomen pelvis 1. Small subtle areas of pneumonitis suspected in both upper lobes of uncertain chronicity. 2. Remainder of the chest is unremarkable. No signs of CHF. 3. Complex 8 cm left ovarian cystic mass is suspicious for a neoplasm which could be benign or malignant. Gynecology consultation is indicated for management of this finding. 4. Remainder of the exam is unremarkable. Pelvic ultrasound 1. Indeterminate 9 cm left ovarian mass. It is unclear if this is cystic or solid from the images. Consider MRI and/or BIOTECHNOLOGIST consult. 2. Uterine fibroids. DISCHARGE MEDICATIONS: See Reconciled list - SIGNIFICANT CHANGES: Oral iron REVIEW OF SYSTEMS No new chest pain or dyspnea Pain controlled No voiding difficulties Tolerating diet challenge PHYSICAL EXAM: CONSTITUTIONAL: VITAL SIGNS: see record. HEENT: Normocephalic, atraumatic. PERRL, EOMI, conjunctivae pink, no scleral icterus. Ears and nose externally normal. Pharynx normal. NECK: No JVD. No carotid bruit, no thyromegaly, no adenopathy. CHEST: Clear to auscultation bilaterally. HEART: S1 and S2 normal. Edema ABDOMEN: Soft, nontender. Normal bowel sounds. MUSCULOSKELETAL: No gross joint deformity or swelling. NEURO: Cranial nerves intact. Grossly intact. No asymmetric findings. SKIN: No rashes, petechiae, concerning changes PSYCHIATRIC: Mood euthymic. DISPOSITION: Time spent on discharge 37 minutes. Status at Discharge Functional status at discharge: independent ambulation Overall status at discharge: patient is progressing back to baseline Time Spent with Patient Time attestation: Total time spent providing and/or coordinating discharge services: Time spent: Greater than 30 minutes Exam Const: Vital Signs, click to edit/add: Vital Signs - 24 hr 09/30/22 11:00 09/30/22 13:40 09/30/22 13:50 Temperature 97 F L 97.6 F 97.8 F Pulse Rate [Pulse Oximeter] 76 76 76 Pulse Rate [orthos tatic lying Pulse Oximeter] Pulse Rate [orthos tatic sitting Puls e Oximeter] Pulse Rate [orthos tatic standing Pul se Oximeter] Respiratory Rate 16 16 16 Blood Pressure [Ri ght Arm] 146/83 H 171/99 H 172/94 H Blood Pressure [or thostatic lying Ri ght Arm] Blood Pressure [or thostatic sitting Right Arm] Blood Pressure [or thostatic standing Right Arm] Pulse Oximetry 97 98 98 Oxygen Delivery Me thod Room Air Room Air Room Air 09/30/22 14:00 09/30/22 14:10 09/30/22 15:00 Temperature 97.7 F 97.7 F Pulse Rate [Pulse Oximeter] 70 75 82 Pulse Rate [orthos tatic lying Pulse Oximeter] Pulse Rate [orthos tatic sitting Puls e Oximeter] Pulse Rate [orthos tatic standing Pul se Oximeter] Respiratory Rate 16 16 16 Blood Pressure [Ri ght Arm] 163/83 H 165/76 H Blood Pressure [or thostatic lying Ri ght Arm] Blood Pressure [or thostatic sitting Right Arm] Blood Pressure [or thostatic standing Right Arm] Pulse Oximetry 97 97 Oxygen Delivery Me thod Room Air Room Air 09/30/22 15:30 09/30/22 16:00 09/30/22 16:30 Temperature 97.8 F Pulse Rate [Pulse Oximeter] 82 80 82 Pulse Rate [orthos tatic lying Pulse Oximeter] Pulse Rate [orthos tatic sitting Puls e Oximeter] Pulse Rate [orthos tatic standing Pul se Oximeter] Respiratory Rate 16 16 Blood Pressure [Ri ght Arm] 142/83 H 137/82 121/91 H Blood Pressure [or thostatic lying Ri ght Arm] Blood Pressure [or thostatic sitting Right Arm] Blood Pressure [or thostatic standing Right Arm] Pulse Oximetry 97 96 96 Oxygen Delivery Me thod Room Air Room Air Room Air 09/30/22 19:00 09/30/22 23:52 09/30/22 23:52 Temperature 97.9 F Pulse Rate [Pulse Oximeter] 88 79 Pulse Rate [orthos tatic lying Pulse Oximeter] Pulse Rate [orthos tatic sitting Puls e Oximeter] Pulse Rate [orthos tatic standing Pul se Oximeter] Respiratory Rate 18 16 16 Blood Pressure [Ri ght Arm] 172/93 H Blood Pressure [or thostatic lying Ri ght Arm] Blood Pressure [or thostatic sitting Right Arm] Blood Pressure [or thostatic standing Right Arm] Pulse Oximetry 96 96 Oxygen Delivery Me thod Room Air Room Air 09/30/22 23:52 10/01/22 05:05 10/01/22 05:05 Temperature 99.1 F 98.9 F Pulse Rate [Pulse Oximeter] 88 71 Pulse Rate [orthos tatic lying Pulse Oximeter] 71 Pulse Rate [orthos tatic sitting Puls e Oximeter] 76 Pulse Rate [orthos tatic standing Pul se Oximeter] 75 Respiratory Rate 16 18 Blood Pressure [Ri ght Arm] 140/77 H 159/86 H Blood Pressure [or thostatic lying Ri ght Arm] 159/86 H Blood Pressure [or thostatic sitting Right Arm] 158/95 H Blood Pressure [or thostatic standing Right Arm] 135/104 H Pulse Oximetry 96 95 Oxygen Delivery Me thod Room Air Room Air DS: Data Data Completed and Pending Labs on day of discharge: Labs from last 24 hours 10/01/22 09/30/22 06:44 11:37 WBC 8.58 RBC 4.81 Hgb 8.9 L Hct 32.3 L MCV 67 L MCH 19 L MCHC 28 L RDW Coeff of Vanessa 22.0 H Plt Count 290 Neut % (Auto) 69.1 Lymph % (Auto) 21.1 [place] % (Auto) 6.5 Eos % (Auto) 2.9 Baso % (Auto) 0.2 Neut # (Auto) 5.92 Lymph # (Auto) 1.81 [place] # (Auto) 0.60 Eos # (Auto) 0.25 Baso # (Auto) 0.02 Abs Immat Gran (auto) 0.02 Imm/Tot Granulo (auto) 0.2 INR 1.19 H 1.41 H Discharge Plan Discharge Disposition: Home, Self-Care Date of Admission: 09/30/22 09:15 Attending Provider on Discharge: Ute Jacob Consulting Providers: Latrice De La Rosa Primary Care Provider: Provider,Not a Local Condition: Improved Anticipated Discharge Date/Time: 10/01/22 10:55 Discharge Medications: New azithromycin 250 mg Tablet 250 mg PO Q24H Qty: 3 0RF Taper: Z-ANSELMO 250 mg Q24H for 3 Days and 0 Hour Rx Instructions: five days of antibiotics, first two were in the hospital. ferrous sulfate 325 mg (65 mg iron) Tablet See Rx Instructions .ROUTE .COMPLEX Qty: 30 0RF Rx Instructions: 325 mg orally every other day guaifenesin 100 mg/5 mL Liquid 100 - 200 mg PO Q4H PRN (Reason: Cough) Qty: 240 0RF Xarelto 10 mg tablet 10 mg PO DAILY Qty: 30 0RF Rx Instructions: please ferumoxytol [Feraheme] 510 mg/17 mL (30 mg/mL) solution 1,020 mg IV ONCE Rx Instructions: administer at a rate of up to 1 mL /sec (30 mg /sec ) send script to [facility] for prior-auth and appt Continued gabapentin 400 mg capsule 400 mg PO 3XD warfarin 5 mg tablet 5 - 7.5 mg PO DAILY Rx Instructions: 7.5 MG WED AND WEDNESDAY 5 MG ALL OTHER DAYS OF WEEK metoprolol tartrate 25 mg tablet 25 mg PO BID trazodone 50 mg tablet 50 - 100 mg PO QPM Discharge Orders: Discharge Order (Routine); Ordered 10/01/22 Ordered By: Ute Jacob Patient Education: Iron Supplements (By mouth), Guaifenesin (By mouth), Azithromycin (By mouth), Rivaroxaban (By mouth) Additional Instructions: 1. I sent Xarelto (a better version of warfar) to the pharmacy. I've printed you info on the coupon information. Discuss the cost of this with pharmacy. If its a no go - just take your warfarin. 2. Get your INR checked next in [place], if you are on Coumadin. No need to check if you are on Xarelto 3. Meet with new PCP as below 4. Meet with BIOTECHNOLOGIST as below 5. Infusion Center will call about iron infusion. Activity Level: No Restrictions and Activity as Tolerated Discharge Diet: Regular Follow Up Appointments: [facility] [Provider Group] - 10/23/22 2:30 pm ([facility] with Dr. Roca, for emb, pap and surgical planning.) Latrice De La Rosa MD [Staff Physician] - None (f/u hospitalization. Dr. De La Rosa saw her in the hospital. needs emb, pap, surgical planning) Darcie Leon DO [Staff Physician] - 10/05/22 3:30 pm ([facility] for follow-up care and Lab for INR. ) Forms: [employer] Info Instructions
--- NOTE | 2022-10-01 13:47 | PC.NURSE ---
Patient independent with ambulation, toileting and eating. Pt denied pain. Reviewed DC paperwork with pt. Pt discharged at 12:55pm. Staff walked with pt to ER doors. Pt ambulated out of ER door to own vehicle.
[2022-10-01 20:37] LABS: Calcium* 8.8 mg/dL (8.4-10.6)
[2022-10-01 22:54] LABS: Cancer Antigen 125 44 U/mL (<=38); Cancer Antigen-GI (CA 19-9) 19 U/mL (<=35); Carcinoembryonic Antigen 2.3 ng/mL (<=3.8)
== END 2022-10-01 12:55 | disposition home or self-care (01) | DRG 811 ==
LOC: ED 11:42 → MEDSURG 14:52
PROVIDERS: Family Medicine; Obstetrics & Gynecology; Surgery; Admitting Provider Family Medicine; Emergency Provider Family Medicine; Visit Provider Family Medicine
DX: D50.0 Iron deficiency anemia secondary to blood loss (chronic) (principal); J18.9 Pneumonia, unspecified organism; D68.61 Antiphospholipid syndrome; N92.0 Excessive and frequent menstruation with regular cycle; N83.292 Other ovarian cyst, left side; D25.9 Leiomyoma of uterus, unspecified; R06.02 Shortness of breath; Z79.01 Long term (current) use of anticoagulants; Z86.718 Personal history of other venous thrombosis and embolism; E66.9 Obesity, unspecified; G57.91 Unspecified mononeuropathy of right lower limb; I10 Essential (primary) hypertension; F17.210 Nicotine dependence, cigarettes, uncomplicated; Z68.37 Body mass index [BMI] 37.0-37.9, adult
CPT/HCPCS: 00731; 36415; 36430; 43239; 71045; 71260; 74177; 76830; 76856; 80048; 80053; 82270; 82378; 82728; 82803; 83540; 83550; 83880; 84484; 85018; 85025; 85045; 85379; 85610; 86140; 86301; 86304; 86850; 86870; 86880; 86900; 86901; 86905; 86906; 86922; 87631; 88305; 93005; 93306; 93976; 94761; 99284; 99285; A9270; C9113; G0378; J1940; J2704; J7120; P9016; Q9967; S4990

== ENCOUNTER 2022-10-08 10:57 | Outpatient (RCR) | payer MEDICAID, SELFPAY ==
--- NOTE | 2022-10-06 11:19 | URNOTE ---
Request received for authorization forGriselda ([id number]). Prior authorization is not required per Medical Injectable Drug List from [facility].
[2022-10-08 11:25] VITALS: BP 178/96; PULSE 82; RESP 16; TEMP 36.1; O2SAT 97
[2022-10-08] MEDS: ferumoxytoL 1,020 MG in 0.9 % SODIUM CHLORIDE 250 ml 250 ML 568 MG IVPB (11:47)
[2022-10-08 12:27] VITALS: BP 185/86; PULSE 71; RESP 18; O2SAT 95
[2022-10-08 13:00] VITALS: BP 187/107; PULSE 70; O2SAT 97
== END 2023-04-06 23:59 | disposition home or self-care (01) ==
LOC: CCIC 10:57
PROVIDERS: PCP Family Medicine; Visit Provider Family Medicine
DX: D50.9 Iron deficiency anemia, unspecified (principal)
CPT/HCPCS: 96365; J7050; Q0138

== ENCOUNTER 2022-10-22 14:46 | Outpatient (CLI) | payer MEDICAID, SELFPAY | END 2022-10-22 14:47 | disposition home or self-care (01) | LOC: NFLDREF 10-23 15:13 | PROVIDERS: PCP Family Medicine; Visit Provider Family Medicine | DX: D68.61 Antiphospholipid syndrome (principal); Z79.01 Long term (current) use of anticoagulants | CPT/HCPCS: 85610 ==

== ENCOUNTER 2022-10-28 14:41 | Outpatient (CLI) | payer MEDICAID, SELFPAY ==
--- NOTE | 2022-10-28 15:00 | CRLHL7_ITS ---
For Patients: As a result of the Century Cures Act, medical imaging exams and procedure reports are released immediately into your electronic medical record. You may view this report before your referring provider. If you have questions, please contact your health care provider. INDICATION: FOLLOW UP LT OVARY CYST COMPARISON: 09/29/2022 TECHNIQUE: 2D moctezuma scale and color Doppler images were acquired of the pelvis using a transabdominal and transvaginal approach. FINDINGS: Sonographic images demonstrate a normal size and smooth outer contour of the uterus. Uterus measures 10.6 cm in length by 7.1 cm in AP diameter by 8.3 cm in transverse dimension. The myometrium has a heterogeneous echotexture. A posterior fundal fibroid is present measuring 4.1 x 3.3 x 3.6 cm. An additional left-sided fibroid is noted measuring 2.6 x 1.9 x 2.4 cm. The endometrial lining appears thickened and measures 16 mm in composite thickness. The right ovary measures 5.0 x 3.7 x 4.2 cm in size and the left ovary measures 10.3 x 5.8 x 8.5 cm. The ovaries demonstrate normal arterial and venous blood flow on color Doppler analysis. A simple anechoic circumscribed left ovarian cyst is present measuring 10.3 x 5.8 x 8.5 cm, previously measuring 8.7 x 5.8 x 7.2 cm. A smaller simple right ovarian cyst is present measuring 3.5 x 2.9 x 2.7 cm. There are no suspicious fluid collections within the cul-de-sac. IMPRESSION: Increased size of simple left ovarian cyst now measuring 10.3 cm, previously measuring 8.7 cm. No torsion. Thickened and heterogeneous endometrium measuring 1.6 cm. Uterine fibroids measuring up to 4.1 cm. Dictated by Jeromy Newman MD @ 10/29/2022 8:14:16 AM (Electronically Signed)
== END 2022-10-28 14:42 | disposition home or self-care (01) ==
PROVIDERS: PCP Family Medicine; Visit Provider Obstetrics & Gynecology
DX: N83.202 Unspecified ovarian cyst, left side (principal); R93.89 Abnormal findings on diagnostic imaging of other specified body structures; D25.9 Leiomyoma of uterus, unspecified
CPT/HCPCS: 76830; 76856; 93976

== ENCOUNTER 2022-11-04 11:13 | Outpatient (CLI) | payer MEDICAID, SELFPAY | END 2022-11-04 11:14 | disposition home or self-care (01) | PROVIDERS: PCP Family Medicine; Visit Provider Obstetrics & Gynecology | DX: N92.0 Excessive and frequent menstruation with regular cycle (principal); Z12.4 Encounter for screening for malignant neoplasm of cervix; Z79.01 Long term (current) use of anticoagulants | CPT/HCPCS: 84443; 85610 ==

== ENCOUNTER 2022-11-25 13:07 | Outpatient (CLI) | payer MEDICAID, SELFPAY | END 2022-11-25 13:08 | disposition home or self-care (01) | PROVIDERS: PCP Family Medicine; Visit Provider Family Medicine | DX: Z01.818 Encounter for other preprocedural examination (principal); I10 Essential (primary) hypertension; E61.1 Iron deficiency; D68.61 Antiphospholipid syndrome; D50.0 Iron deficiency anemia secondary to blood loss (chronic); Z13.6 Encounter for screening for cardiovascular disorders | CPT/HCPCS: 80053; 80061; 82043; 82570; 83540; 83550; 85610 ==

== ENCOUNTER 2022-12-25 11:00 | Outpatient (CLI) | payer MEDICAID, SELFPAY | END 2022-12-25 11:01 | disposition home or self-care (01) | LOC: NFLDREF 01-01 10:49 | PROVIDERS: PCP Family Medicine; Visit Provider Family Medicine | DX: I10 Essential (primary) hypertension (principal); D68.61 Antiphospholipid syndrome; Z79.01 Long term (current) use of anticoagulants | CPT/HCPCS: 82043; 82570 ==

== ENCOUNTER 2023-06-28 07:41 | Outpatient (CLI) | payer MEDICAID, SELFPAY | END 2023-06-28 07:42 | disposition home or self-care (01) | PROVIDERS: PCP Family Medicine; Visit Provider Family Medicine | DX: I10 Essential (primary) hypertension (principal); E66.9 Obesity, unspecified; R80.9 Proteinuria, unspecified; Z11.59 Encounter for screening for other viral diseases | CPT/HCPCS: 80061; 82043; 82570; 86304; 86803 ==

== ENCOUNTER 2023-11-08 13:01 | Outpatient (CLI) | payer MEDICAID, SELFPAY | END 2023-11-08 13:02 | disposition home or self-care (01) | LOC: NFLDREF 11-10 13:10 | PROVIDERS: PCP Family Medicine; Referring Provider Family Medicine; Visit Provider Family Medicine | DX: D68.61 Antiphospholipid syndrome (principal); Z79.01 Long term (current) use of anticoagulants | CPT/HCPCS: 85610 ==

== ENCOUNTER 2024-01-03 13:00 | Outpatient (CLI) | payer MEDICAID, SELFPAY | END 2024-01-03 13:01 | disposition home or self-care (01) | LOC: NFLDREF 01-05 11:28 | PROVIDERS: PCP Family Medicine; Referring Provider Family Medicine; Visit Provider Family Medicine | DX: Z79.01 Long term (current) use of anticoagulants (principal) | CPT/HCPCS: 85610 ==

== ENCOUNTER 2024-01-18 18:32 | Emergency (ER) | payer MEDICAID, SELFPAY ==
[2024-01-18 18:37] VITALS: BP 149/91; PULSE 92; RESP 18; TEMP 36.4; O2SAT 98; BMI 29.3
--- NOTE | 2024-01-18 20:32 | ED_ITS ---
HPI - General Adult General Date Seen: 01/18/24 Chief complaint: Laceration/Wound Stated complaint: Cut finger, wont stop bleeding Time Seen by Provider: 01/18/24 20:15 Source: patient History of Present Illness HPI narrative: Patient is a 48-year-old woman who cut her left thumb with a kitchen knife a little while ago. 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 She says she was not able to get the bleeding stopped. She is not certain how she sliced her finger. She smells very strongly of marijuana. Believes her last tetanus was 4 years ago. Related Data Previous Rx's ?Medication ?Instructions ?Recorded gabapentin 400 mg capsule 400 mg PO 3XD #270 caps 03/31/23 lisinopril 40 mg tablet 40 mg PO QDAY #30 tabs 06/28/23 albuterol sulfate 90 mcg/actuation 2 puff PO QID PRN for wheezing #18 07/15/23 aerosol inhaler (Ventolin HFA) grams hydrochlorothiazide 12.5 mg tablet 12.5 mg PO QAM #90 tabs 07/15/23 nortriptyline 50 mg capsule 50 mg PO QHS #90 caps 07/15/23 semaglutide (weight loss) 2.4 2.4 mg (0.75 mL) subcut QWEEK 12 08/09/23 mg/0.75 mL subcutaneous pen weeks #9 mL injector (Wegovy) trazodone 50 mg tablet 50 - 100 mg (1 - 2 x 50 mg) PO QPM 10/19/23 PRN insomnia #180 tabs bupropion HCl 150 mg 24 hr tablet, 150 mg PO QAM #30 tabs 11/10/23 extended release (Wellbutrin XL) warfarin 5 mg tablet 5 - 7.5 mg PO DAILY #120 tabs 01/18/24 Allergies Allergy/AdvReac Type Severity Reaction Status Date / Time No Known Allergies Allergy Unknown Unknown Verified 01/18/24 18:40 [facility] Medical History (Updated 01/18/24 @ 20:32 by Eva Brito MD) Microalbuminuria ?R80.9 - Proteinuria, unspecified (ICD-10) Amputation at midfoot ?S98.319A - Complete traumatic amputation of unspecified midfoot, initial encounter (ICD-10) Left ovarian cyst ?N83.202 - Unspecified ovarian cyst, left side (ICD-10) Chronic blood loss anemia ?D50.0 - Iron deficiency anemia secondary to blood loss (chronic) (ICD-10) Closed fracture of tibia and fibula (02/15/12) ?S82.209A - Unspecified fracture of shaft of unspecified tibia, initial encounter for closed fracture (ICD-10) ?S82.409A - Unspecified fracture of shaft of unspecified fibula, initial encounter for closed fracture (ICD-10) Surgical History (Updated 06/28/23 @ 14:00 by Eva Torres MD) History of radical hysterectomy ?Z90.710 - Acquired absence of both cervix and uterus (ICD-10) History of surgery on lower extremity ?Z98.890 - Other specified postprocedural states (ICD-10) H/O foot surgery ?Z98.890 - Other specified postprocedural states (ICD-10) History of tubal ligation ?Z98.51 - Tubal ligation status (ICD-10) History of appendectomy ?Z90.49 - Acquired absence of other specified parts of digestive tract (ICD- 10) Social History (Updated 09/29/22 @ 19:20 by Latrice De La Rosa MD) Narrative: 3 daughters What is your current living situation?: I presently have a place to live Problems where you live: no known problems Problems where you live details: no In the past 12 months, utilities in danger of being shut off: no In the past 12 mos, have been you worried that your food would run out before you had money to buy more?: never true In the past 12 mos, the food you bought just didn't last and you didn't have money to buy more?: never true Highest level of school completed/degree received: 12th grade, no diploma Smoking Status: Current every day smoker What tobacco products do you use: cigarettes Smoking packs per day: 1 Smoking cigarettes per day: 20.0 Do you use any of these nicotine containing products: None Second hand tobacco smoke exposure: No How often do you have a drink containing alcohol: monthly or less How often do you have six or more drinks on one occasion: Never AUDIT-C Alcohol total score: 1 Non-prescribed substance use: denies use Caffeine: Yes How often does anyone, including family, friends and others, physically hurt you : never How often does anyone, including family, friends and others, insult or talk down to you: never How often does anyone, including family, friends and others, threaten you with harm: never How often does anyone, including family, friends and others, scream or curse at you: never Do you think of yourself as: straight/heterosexual Gender Identity: female Are you currently sexually active: No service: No Exam Narrative: Exam Narrative: Vital signs reviewed In general, alert, nontoxic woman. She is pleasant and cooperative. Extremities: Examination of the left thumb shows a laceration over the pad of the finger, it looks as if she may have cut off a piece of the pad of her thumb. I do not see arterial bleeding but there is brisk venous oozing. Distal CMS intact. Const: Vital Signs, click to edit/add: Vital Signs - 24 hr 01/18/24 18:37 Temperature 97.5 F L Pulse Rate [Pulse Oximeter] 92 Respiratory Rate 18 Blood Pressure [Ri ght Upper Arm] 149/91 H Pulse Oximetry 98 Oxygen Delivery Me thod Room Air Documenting provider has reviewed patient's vital signs: yes Course Course ED Course: Procedure note: Wound was anesthetized and explored. I am able to approximate the wound edges to some degree, I placed to simple interrupted superficial sutures using 4-0 nylon with cessation of bleeding. Dressing applied by the manufacturing quality technician. At this point, bleeding appears to be controlled, discussed how to manage if she develops some ongoing using. Routine wound care, return for signs of infection or uncontrolled bleeding despite attempts to manage at home. Suture removal in about a week. Vital Signs Vital signs: Initial Vital Signs Temperature 97.5 F L 01/18/24 18:37 Temperature Source Temporal Artery Scan 01/18/24 18:37 Pulse Rate 92 01/18/24 18:37 Pulse Rhythm Regular 01/18/24 18:37 Respiratory Rate 18 01/18/24 18:37 Blood Pressure 149/91 H 01/18/24 18:37 Blood Pressure Mean 110 H 01/18/24 18:37 Blood Pressure Position Sitting 01/18/24 18:37 Pulse Oximetry 98 01/18/24 18:37 Oxygen Delivery Method Room Air 01/18/24 18:37 Vital Signs Temperature 97.5 F L 01/18/24 18:37 Pulse Rate 92 01/18/24 18:37 Respiratory Rate 18 01/18/24 18:37 Blood Pressure 149/91 H 01/18/24 18:37 Pulse Oximetry 98 01/18/24 18:37 Oxygen Delivery Method Room Air 01/18/24 18:37 Temperature 97.5 F L 01/18/24 18:37 Pulse Rate 92 01/18/24 18:37 Respiratory Rate 18 01/18/24 18:37 Blood Pressure 149/91 H 01/18/24 18:37 Pulse Oximetry 98 01/18/24 18:37 Oxygen Delivery Method Room Air 01/18/24 18:37 Discharge Plan Discharge Clinical Impression: Laceration of thumb, Anticoagulated Patient Disposition: Home, Self-Care Condition: Improved Instructions: Finger Laceration (ED) Additional Instructions: Suture removal in about 1 week. I do not anticipate significant problems with bleeding at this point, but if you do have some oozing, I would apply pressure for 15 minutes without peeking. If you have uncontrolled bleeding despite pressure return to the ER. Continue your current medications. Return for signs of infection. Prescriptions: No Action gabapentin 400 mg capsule 400 mg PO 3XD Qty: 270 1RF lisinopril 40 mg tablet 40 mg PO QDAY Qty: 30 12RF albuterol sulfate [Ventolin HFA] 90 mcg/actuation HFA aerosol inhaler 2 puff PO QID PRN (Reason: for wheezing) Qty: 18 12RF hydrochlorothiazide 12.5 mg tablet 12.5 mg PO QAM Qty: 90 3RF nortriptyline 50 mg capsule 50 mg PO QHS Qty: 90 3RF Wegovy 2.4 mg/0.75 mL pen injector 2.4 mg subcut QWEEK 84 Days Qty: 9 3RF trazodone 50 mg tablet 50 - 100 mg PO QPM PRN (Reason: insomnia) Qty: 180 0RF bupropion HCl [Wellbutrin XL] 150 mg tablet extended release 24 hr 150 mg PO QAM Qty: 30 2RF warfarin 5 mg tablet 5 - 7.5 mg PO DAILY Qty: 120 0RF Protocol: Dose Management Condition: Wednesday Dose/Route: 7.5 mg Instruction: 1.5 x 5 mg tablets Condition: Wednesday Dose/Route: 5 mg Instruction: 1 x 5 mg tablet Condition: Wednesday Dose/Route: 7.5 mg Instruction: 1.5 x 5 mg tablets Condition: Wednesday Dose/Route: 5 mg Instruction: 1 x 5 mg tablet Condition: Dose/Route: 7.5 mg Instruction: 1.5 x 5 mg tablets Condition: Wednesday Dose/Route: 5 mg Instruction: 1 x 5 mg tablet Condition: Wednesday Dose/Route: 7.5 mg Instruction: 1.5 x 5 mg tablets Protocol Text: Adjustment Start Date: Wednesday01/03/24 INR Value: 2.42 INR Date: 01/03/24 Recheck Date: 01/31/24 Rx Instructions: Take 5 mg by mouth Wednesday, Wednesday, Wednesday and 7.5 mg ROW Follow Up/Referrals: Eva Torres MD [Primary Care Provider] - Stand Alone [facility] Inst[facility]
== END 2024-01-18 21:10 | disposition home or self-care (01) ==
LOC: ED 20:58
PROVIDERS: Emergency Provider Emergency Medicine; PCP Family Medicine
DX: S61.012A Laceration without foreign body of left thumb without damage to nail, initial encounter (principal); W26.0XXA Contact with knife, initial encounter; Z79.01 Long term (current) use of anticoagulants
CPT/HCPCS: 12001; 99283

== ENCOUNTER 2024-08-08 12:26 | Outpatient (CLI) | payer MEDICAID, SELFPAY | END 2024-08-08 12:27 | disposition home or self-care (01) | LOC: NFLDREF 08-12 10:30 | PROVIDERS: PCP Family Medicine; Referring Provider Family Medicine; Visit Provider Family Medicine | DX: Z00.00 Encounter for general adult medical examination without abnormal findings (principal); I10 Essential (primary) hypertension; R73.03 Prediabetes; E66.9 Obesity, unspecified | CPT/HCPCS: 80053; 80061; 82043; 82570 ==